=== PATIENT | female | born 1985 | race Caucasian/White ===

== ENCOUNTER → 2016-10-05 | Outpatient (REF) | payer OTHER ==
[~2016-10-05] MED LIST: ALLERGY; ALLERGY SHOTS; ANAP550T PO; CETI10TA GT; CYCL5TA GT; NAPR250T2 PO; PROZ10CA7 PO; VICO5TAB16 PO
== END | disposition home or self-care (01) ==
LOC: M LAB REF 11:59
PROVIDERS: ATTEND Physician Assistant
DX: Z11.9 Encounter for screening for infectious and parasitic diseases, unspecified (principal)

== ENCOUNTER → 2018-07-08 | Outpatient (REF) | payer OTHER | LOC: M SFHCLERA 10:14 | DX: J02.9 Acute pharyngitis, unspecified (principal) ==

== ENCOUNTER → 2018-10-16 | Outpatient (REF) | payer OTHER ==
[~2018-10-16] MED LIST changes: -ANAP550T PO; -NAPR250T2 PO; +NAPR250T4 PO; +[UNRECOGNIZED DRUG - CODE] PO
== END ==
LOC: M SFHCLERA 12:54
PROVIDERS: ATTEND Physician Assistant
DX: R50.9 Fever, unspecified (principal)

== ENCOUNTER → 2019-03-02 | Outpatient (CLI) | payer OTHER ==
[~2019-03-02] MED LIST changes: +ANAP550T15 PO; -CYCL5TA GT; +CYCL5TAB5 GT; +PROHANCE 279.3MG/ML 15ML VIAL (A9576) As Ordered ONE; -VICO5TAB16 PO; +VICO5TAB17 PO; -[UNRECOGNIZED DRUG - CODE] PO
--- NOTE | 2019-03-03 19:19 | REP ---
MRI ABDOMEN WITH AND WITHOUT CONTRAST: COMPARISON: 03/19/2018 from [facility] as well as multiple other prior exams. Multiple sequences obtained in the axial, coronal and sagittal planes prior to and following the intravenous administration of 13 mL ProHance. Once again, there are multiple liver lesions identified. Compared to the most recent exam, most of the nodules are stable, but some have mildly increased in size. They range in size from subcentimeter diameter up to the largest in the posterior segment of the right lobe inferiorly. That lesion measures 6.1 x 4.6 cm and is essentially unchanged. Another dominant lesion is seen in the lateral segment of the left lobe and measures 4.4 x 5.7 cm, also not significantly changed. In the right dome a lesion has increased in size by 2 mm, with a maximum diameter of 1.4 cm. Slightly more inferiorly in the medial segment of the left lobe of the liver, a 3 cm lesion has increased in size, previously 2.6 cm. A lesion in the anterior segment of the right lobe laterally has increased in size by 2 mm in total diameter, now measuring 1.7 cm. A lesion in the lateral segment of the left lobe has mildly increased in size measuring 1.9 x 2.5 cm, previously 1.7 x 2.2 cm. An adjacent nodule in that left lobe has increased in size by 3 mm, now measuring 1.4 cm in diameter. No new lesions are seen and no lesions have regressed. 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 Hemangiomas are seen in the visualized vertebral bodies as well without significant change. Adrenals and pancreas remain unremarkable. No significant abnormality is seen of either kidney. I see no adenopathy or free fluid in the visualized abdomen. IMPRESSION: Multiple liver lesions most consistent with hepatic adenomas. A dominant lesion in the inferior right lobe posterior segment and another dominant lesion in the lateral segment of the left lobe have remained essentially stable. A few other smaller lesions have minimally increased in size since the prior study of 03/19/2018 as discussed in detail above. Other lesions remain stable. Electronically Signed by Diaz Arechiga MD 03/05/2019 12:47 P
== END ==
LOC: M RAD 17:33
PROVIDERS: ATTEND Internal Medicine Gastroenterology
DX: D13.4 Benign neoplasm of liver (principal); R14.0 Abdominal distension (gaseous); D18.03 Hemangioma of intra-abdominal structures
CPT/HCPCS: 74183; A9576

== ENCOUNTER → 2019-03-23 | Outpatient (REF) | payer OTHER ==
[~2019-03-23] MED LIST changes: -PROHANCE 279.3MG/ML 15ML VIAL (A9576) As Ordered ONE
== END ==
LOC: M SFHCPLAZ 10:26
PROVIDERS: ATTEND Dermatology
DX: D22.61 Melanocytic nevi of right upper limb, including shoulder (principal); D22.62 Melanocytic nevi of left upper limb, including shoulder; D23.70 Other benign neoplasm of skin of unspecified lower limb, including hip

== ENCOUNTER → 2019-06-19 | Outpatient (REF) | payer OTHER | LOC: M SFHCLERA 15:27 | PROVIDERS: ATTEND Physician Assistant | DX: J02.9 Acute pharyngitis, unspecified (principal) ==

== ENCOUNTER → 2019-10-14 | Outpatient (REF) | payer OTHER | LOC: M SFHCLERA 13:53 | PROVIDERS: ATTEND Physician Assistant | DX: R50.9 Fever, unspecified (principal) ==

== ENCOUNTER → 2020-01-24 | Outpatient (CLI) | payer OTHER ==
[2020-01-24 13:09] LABS: BASO % 0.5 % (0.0-1.0); EOS # 0.1 10^3/uL (0.0-0.5); EOS % 1.7 % (0.0-3.0); HEMATOCRIT 40.7 % (36.0-47.0); HEMOGLOBIN 13.6 g/dl (12.0-15.5); LYMPH # 2.1 10^3/uL (1.5-5.0); LYMPH % 28.5 % (24.0-44.0); MEAN CORPUSCULAR HEMOGLOBIN 30.2 pg (27.0-33.0); MEAN CORPUSCULAR HGB CONC 33.4 g/dl (32.0-36.5); MEAN CORPUSCULAR VOLUME 90.4 fl (80.0-96.0); MONO # 0.5 10^3/uL (0.0-0.8); MONO % 6.7 % (0.0-5.0); NEUTROPHILS # 4.7 10^3/uL (1.5-8.5); NEUTROPHILS % 62.3 % (36.0-66.0); PLATELET COUNT, AUTOMATED 423 10^3/uL (150-450); WHITE BLOOD COUNT 7.5 10^3/uL (4.0-10.0)
[2020-01-24 13:11] LABS: BLOOD UREA NITROGEN 11 MG/DL (7-18); CALCIUM LEVEL 8.8 MG/DL (8.5-10.1); CARBON DIOXIDE LEVEL 28 MEQ/L (21-32); CHLORIDE LEVEL 105 MEQ/L (98-107); CREATININE FOR GFR 0.73 MG/DL (0.55-1.30); GLOMERULAR FILTRATION RATE > 60.0 (>60); GLUCOSE, FASTING 79 MG/DL (70-100); POTASSIUM SERUM 4.1 MEQ/L (3.5-5.1); SODIUM LEVEL 137 MEQ/L (136-145)
[2020-01-24 14:05] LABS: HEMOGLOBIN A1c 5.1 %
== END ==
LOC: M PLALAB 09:55
PROVIDERS: ATTEND Psychiatry & Neurology Psychiatry
DX: F43.10 Post-traumatic stress disorder, unspecified (principal); F41.1 Generalized anxiety disorder; F32.9 Major depressive disorder, single episode, unspecified; F31.81 Bipolar II disorder

== ENCOUNTER → 2020-04-27 | Outpatient (CLI) | payer OTHER ==
[2020-04-27 13:56] LABS: ALBUMIN 3.9 GM/DL (3.2-5.2); BILIRUBIN,DIRECT 0.2 MG/DL (0.0-0.2); CHOLESTEROL RISK RATIO 3.4 (<5); TOTAL PROTEIN 7.8 GM/DL (6.4-8.2)
== END ==
LOC: M PLALAB 08:43
PROVIDERS: ATTEND Psychiatry & Neurology Psychiatry
DX: Z13.9 Encounter for screening, unspecified (principal)

== ENCOUNTER → 2020-05-03 | Outpatient (REF) | payer OTHER | LOC: M LAB REF 19:18 | PROVIDERS: ATTEND Dermatology | DX: D23.61 Other benign neoplasm of skin of right upper limb, including shoulder (principal); D23.71 Other benign neoplasm of skin of right lower limb, including hip | CPT/HCPCS: 88305; G0463 ==

== ENCOUNTER 2020-12-02 13:18 | Emergency (ER) | payer OTHER ==
[~2020-12-02] VITALS: Ht 165.1 cm; Wt 73.4 kg
[~2020-12-02 13:18] MED LIST changes: +NAPR-849 PO; -NAPR250T4 PO
[2020-12-02] MEDS ORDERED: ARIP1TAB4 PO (13:37)
[2020-12-02] MEDS ORDERED: MONT10TA10 PO (13:37)
[2020-12-02] MEDS ORDERED: QUET25TA3 PO (13:37)
[2020-12-02] MEDS ORDERED: HYDR12CA PO (13:37)
[2020-12-02] MEDS ORDERED: VITA50005 PO (13:37)
[2020-12-02] MEDS ORDERED: ZANA4TAB PO (13:37)
[2020-12-02] MEDS ORDERED: ORIL150T PO (13:37)
--- NOTE | 2020-12-02 13:56 | REP ---
INDICATION: shut in car door COMPARISON: None. TECHNIQUE: Four views right 3rd digit. FINDINGS: There is no evidence of acute fracture, dislocation, or intrinsic bone disease.There is mild soft tissue swelling. IMPRESSION: No fracture or dislocation. <Electronically signed by Diaz Arechiga > 12/02/20 [id number]
[2020-12-02] MEDS ORDERED: ACETAMINOPHEN TAB 650MG DOSE (2X325MG) PO ONE (14:20)
--- NOTE | 2020-12-02 14:55 | REP ---
INDICATION: trauma COMPARISON: None. TECHNIQUE: Four views right hand. FINDINGS: There is no evidence of acute fracture, dislocation, or intrinsic bone disease. IMPRESSION: No fracture or dislocation. <Electronically signed by Diaz Arechiga > 12/02/20 [id number]
[2020-12-02 15:49] VITALS: BP 118/77
== END 2020-12-02 15:51 | disposition home or self-care (01) ==
LOC: M ED 13:18
DX: S60.031A Contusion of right middle finger without damage to nail, initial encounter (principal); W23.0XXA Caught, crushed, jammed, or pinched between moving objects, initial encounter; Y92.9 Unspecified place or not applicable; Y93.89 Activity, other specified; Y99.9 Unspecified external cause status; D27.9 Benign neoplasm of unspecified ovary; N80.9 Endometriosis, unspecified; F41.9 Anxiety disorder, unspecified; F32.9 Major depressive disorder, single episode, unspecified; E73.9 Lactose intolerance, unspecified; Z79.899 Other long term (current) drug therapy; Z88.0 Allergy status to penicillin; Z88.1 Allergy status to other antibiotic agents; Z88.5 Allergy status to narcotic agent; Z88.8 Allergy status to other drugs, medicaments and biological substances

== ENCOUNTER → 2021-05-30 | Outpatient (REF) | payer OTHER ==
[~2021-05-30] MED LIST changes: +ARIP1TAB4 PO; +ERGO500029 PO; +HYDR12CA PO; +MONT10TA10 PO; +ORIL150T PO; +QUET1TAB17 PO; +ZANA4TAB PO
== END ==
LOC: M LAB REF 16:14
PROVIDERS: ATTEND Physician Assistant
DX: R50.9 Fever, unspecified (principal); R05.9 Cough, unspecified

== ENCOUNTER → 2021-06-13 | Outpatient (REF) | payer OTHER | LOC: M LAB REF 17:20 | PROVIDERS: ATTEND Physician Assistant | DX: D22.61 Melanocytic nevi of right upper limb, including shoulder (principal) ==

== ENCOUNTER → 2022-09-17 | Outpatient (CLI) | payer OTHER ==
[~2022-09-17] MED LIST changes: -MONT10TA10 PO; +MONT10TA97 PO
== END ==
LOC: M RAD 07:30
PROVIDERS: ATTEND Internal Medicine Gastroenterology
DX: D13.4 Benign neoplasm of liver (principal); K76.89 Other specified diseases of liver

== ENCOUNTER → 2024-04-13 | Outpatient (CLI) | payer OTHER | LOC: M WHC 09:18 | PROVIDERS: ATTEND Family Medicine | DX: Z12.31 Encounter for screening mammogram for malignant neoplasm of breast (principal) ==

== ENCOUNTER → 2024-04-29 | Outpatient (CLI) | payer OTHER ==
[~2024-04-29] MED LIST changes: +ALLE24TA7 PO; +BUPR-597 PO; -CETI10TA GT; +CETI10TA PO; +CLON-412 PO; +CYCL5TAB; +FEXO-117 PO; +FLUTISP; +GABA-1171 PO; +GABA-282; +HYDR12.55; +METF500T13 PO; +METO1TAB87 PO; +PANT40TA29 PO; +RIZA10TA58; +SYNT25TA PO; +ZOLP5TAB PO
== END ==
LOC: M WHC 09:47
PROVIDERS: ATTEND Family Medicine
DX: Z12.31 Encounter for screening mammogram for malignant neoplasm of breast (principal)

== ENCOUNTER 2024-05-20 07:48 | Day surgery (SDC) | payer OTHER ==
[~2024-05-20] VITALS: Ht 165.1 cm; Wt 88.5 kg
[~2024-05-20 07:48] MED LIST changes: +GABA-1172; -GABA-282
[2024-05-20] MEDS ORDERED: HYDROmorphone HCL 2MG/ML 1ML VIAL As Ordered ONE (08:42)
[2024-05-20] MEDS ORDERED: MIDAZOLAM INJ 2MG/2ML VIAL As Ordered ONE (08:42)
[2024-05-20] MEDS ORDERED: propofoL 200 MG/20 ML VIAL As Ordered ONE (08:43)
[2024-05-20] MEDS ORDERED: ONDANSETRON 4MG 2ML VIAL As Ordered ONE (08:43)
[2024-05-20] MEDS ORDERED: LIDOCAINE 2% 100MG/5ML SDV (FOR ANES.) As Ordered ONE (08:43)
[2024-05-20] MEDS ORDERED: fentaNYL 100 MCG/2 ML INJECTION As Ordered ONE (08:43)
[2024-05-20] MEDS ORDERED: ROCURONIUM BROMIDE 50MG/5ML VIAL As Ordered ONE (08:43)
[2024-05-20] MEDS ORDERED: KETOROLAC 60MG 2ML VIAL As Ordered ONE (08:43)
[2024-05-20] MEDS ORDERED: ACETAMINOPHEN 1000MG 100ML IV BAG As Ordered ONE (08:44)
[2024-05-20] MEDS: LR 1,000 ML IV SCH (08:56)
[2024-05-20 09:21] LABS: HEMATOCRIT 37.7 % (36.0-47.0); HEMOGLOBIN 12.7 g/dl (12.0-15.5)
[2024-05-20] MEDS ORDERED: SUGAMMADEX SODIUM 500 MG/5 ML VIAL (BRIDION) As Ordered ONE (11:05)
[2024-05-20] MEDS ORDERED: fentaNYL 100 MCG/2 ML INJECTION IV PRN (12:35)
[2024-05-20] MEDS ORDERED: HYDROMORPHONE HCL 0.5 MG/ 0.5 ML SYRINGE IV PRN (12:35)
[2024-05-20] MEDS ORDERED: ONDANSETRON 4MG 2ML VIAL IV PRN (12:35)
[2024-05-20] MEDS ORDERED: LR 1,000 ML IV SCH (12:35)
[2024-05-20] MEDS: oxyCODONE 5MG TAB PO PRN (13:09)
[2024-05-20 13:40] VITALS: BP 121/80; TEMP 97; O2SAT 100
== END 2024-05-20 14:05 | disposition home or self-care (01) ==
LOC: M SDC 07:48
PROVIDERS: ATTEND Obstetrics & Gynecology
DX: D36.7 Benign neoplasm of other specified sites (principal); N73.6 Female pelvic peritoneal adhesions (postinfective); Z90.710 Acquired absence of both cervix and uterus; Z88.1 Allergy status to other antibiotic agents; Z88.5 Allergy status to narcotic agent; Z88.8 Allergy status to other drugs, medicaments and biological substances; E73.9 Lactose intolerance, unspecified; Z79.899 Other long term (current) drug therapy
CPT/HCPCS: 36415; 58662; 85014; 85018; 88108; 88305; 88313; J0131; J0665; J1100; J1170; J1885; J2250; J2405; J3010

== ENCOUNTER → 2024-07-07 | Outpatient (REF) | payer OTHER ==
[~2024-07-07] MED LIST changes: -CYCL5TAB; +CYCL5TAB4
== END ==
LOC: M SFHCDERM 07:47
PROVIDERS: ATTEND Physician Assistant
DX: D22.62 Melanocytic nevi of left upper limb, including shoulder (principal)

== ENCOUNTER → 2025-04-19 | Outpatient (CLI) | payer OTHER ==
[~2025-04-19] MED LIST changes: -BUPR-597 PO; +BUPR-766 PO; -FEXO-117 PO; +FEXO-193 PO; +HYDR12.510 PO; -HYDR12CA PO; +PROZ10CA11 PO; -PROZ10CA7 PO
== END ==
LOC: M WHC 14:15
PROVIDERS: ATTEND Internal Medicine
DX: Z12.31 Encounter for screening mammogram for malignant neoplasm of breast (principal); R92.323 Mammographic fibroglandular density, bilateral breasts

== ENCOUNTER → 2025-04-21 | Outpatient (CLI) | payer OTHER | LOC: M WUC 14:36 | PROVIDERS: ATTEND Nurse Practitioner Family | DX: M25.522 Pain in left elbow (principal); M25.532 Pain in left wrist; M79.642 Pain in left hand ==

== ENCOUNTER → 2025-06-08 | Outpatient (REF) | payer OTHER ==
[~2025-06-08] MED LIST changes: -ZOLP5TAB PO; +ZOLP5TAB9 PO
== END ==
LOC: M LAB REF 17:33
PROVIDERS: ATTEND Physician Assistant
DX: L82.1 Other seborrheic keratosis (principal)

== ENCOUNTER → 2025-08-02 | Outpatient (REF) | payer OTHER | LOC: M LAB REF 15:57 | PROVIDERS: ATTEND Surgery | DX: D48.5 Neoplasm of uncertain behavior of skin (principal) ==